=== PATIENT | male | born 1975 | race Two or more races ===

== ENCOUNTER 2023-12-16 13:23 | Outpatient (AMB) | payer OTHER, SELFPAY ==
[2023-12-16 13:26] VITALS: BP 110/82; PULSE 74; O2SAT 95; BMI 35.8
--- NOTE | 2023-12-16 13:26 | MHC.PC.OV ---
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: No Accompanied by: Self / Same As Patient Allergies cats Allergy (Intermediate, Uncoded 12/16/23 14:27) sneezing, wheezing Medication List - Last Reconciled 12/16/23 by Eben Hanks MD No Known Home Meds Tobacco use date assessed: 12/16/23 Dental Screening Dental Screen Date: 12/16/23 Did you have a dental visit in the last 12 months?: Yes Did you have a dental problem in the last 6 months where you did not have access to dental care?: No Was dental information given to patient?: Patient has dentist HPI est care/ HDL HPI Details Patient comes in today to establish care - is a new patient to the practice Previous PCPs were in [place] and then [place] but has not seen a doctor in years States that he currently feels okay Relates that he had asthma when he was a child but has not needed to use any inhalers for years until recently after shoveling some snow when he felt somewhat winded and SOB for a few minutes States that his symptoms were mostly mild and lasted for only a few minutes but remembers that he was thinking that his symptoms would have been addressed immediately if only he had an inhaler on hand He denies any headaches or dizziness Denies any chest pains, no SOB at present No nausea/vomiting, no abdominal pain No change in bowel habits noted Denies any acute urinary symptoms PFSH Medical History (Updated 12/16/23 @ 14:46 by Eben Hanks MD) Obesity (BMI 30-39.9) Asthma Surgical History (Updated 12/16/23 @ 14:28 by Eben Hanks MD) Hx of inguinal hernia surgery Hx of eye surgery Family History (Updated 12/16/23 @ 14:29 by Eben Hanks MD) Mother Diabetes Paternal Grandmother Hyperlipidemia Social History Housing: House Patient Tobacco Use Status: Former Tobacco user e-Cigarette/Vaping Use: Never Used service: No Current occupational status: employed Current occupational exposures/hazards: No Cognitive needs: No Hearing needs: No Vision needs: No Questionnaire PHQ-9 Over the last 2 weeks, how often have you been bothered by any of the following problems? 1. Little interest or pleasure in doing things: not at all 2. Feeling down, depressed, or hopeless: not at all 3. Trouble falling or staying asleep, or sleeping too much: not at all 4. Feeling tired or having little energy: not at all 5. Poor appetite or overeating: not at all 6. Feeling bad about yourself - or that you are a failure or have let yourself or your family down: not at all 7. Trouble concentrating on things, such as reading the newspaper or watching television: not at all 8. Moving or speaking so slowly that other people could have noticed. Or the opposite - being so fidgety or restless that you have been moving around a lot more than usual: not at all 9. Thoughts that you would be better off or of hurting yourself in some way: not at all Total score: 0 Depression Screening Interpretation: Negative Depression Screening Done: Yes 90421 - PHQ-9 Billing: Yes Source: Developed by Drs. Asael Calixto, Minnie Dewey, Brent Lawosn and colleagues, with an educational ema from [employer]). Thrive Questionnaire Date Thrive assessed: 12/16/23 I am a: Patient What is your living situation today?: I have a steady place to live Within the past 12 months, did the food you bought not last and you didn't have the money to get more?: Never true Within the past 12 months, did you worry whether your food would run out before you got money to buy more?: Never true Do you have trouble paying for medicines?: No Do you have trouble getting transportation to medical appointments?: No Do you have trouble paying your heating and electricity bill?: No Do you have trouble taking care of your child, family member or friend?: No Do you have trouble with day-to-day activities such as bathing, preparing meals, shopping, managing finances, etc.?: No Are you currently unemployed and looking for a job?: No Are you interested in more education?: No Please select the resources that you would like help with: None Currently or been in a relationship where the following occur: no concerns reported AUDIT C Alcohol Use Questionnaire (AUDIT-C) 1. How often do you have a drink containing alcohol?: Monthly or less 2. How many drinks containing alcohol do you have on a typical day when you are drinking?: 5 or 6 3. How often do you have six or more drinks on one occasion?: Less than monthly Total Score: 4 Score Reviewed/Action Taken: Yes MARINO-7 AMB Questionnaire MARINO-7 Date MARINO - 7 assessed: 12/16/23 Feeling nervous, anxious, or on edge: 0 = Not at all Not being able to stop or control worryin = Not at all Worrying too much about different things: 0 = Not at all Trouble relaxin = Not at all Being so restless that it is hard to sit still: 0 = Not at all Becoming easily annoyed or irritable: 0 = Not at all Feeling afraid as if something awful might happen: 0 = Not at all Total MARINO-7 score (0-4 normal; 5-9 mild; 10-14 moderate; 15-21 severe): 0 Source: Developed by Drs. Asael Calixto, Minnie Dewey, Brent Lawson and colleagues, with an educational ema from [employer] ([employer]). Review of Systems Const Denies chills, Denies difficulty sleeping, Denies fatigue, Denies fever(s), Denies headache(s), Denies malaise and Denies weakness Eyes Denies blurry vision, Denies change in vision, Denies irritation and Denies itchy eyes ENT Denies dysphagia, Denies dizziness, Denies otalgia, Denies headache(s), Denies nasal congestion, Denies neck pain, Denies odynophagia and Denies sore throat Card Denies chest pain, Denies rapid heart rate, Denies irregular heart rhythm, Denies palpitations and Denies dyspnea Resp Denies chest congestion, Denies cough, Denies dyspnea and Denies wheezing GI Denies abdominal pain, Denies bloating, Denies constipation, Denies dysphagia, Denies heartburn, Denies diarrhea, Denies nausea, Denies odynophagia and Denies vomiting Denies hematuria, Denies difficulty urinating, Denies dysuria, Denies urinary frequency and Denies urinary urgency Musc Denies back pain, Denies arthralgias, Denies joint swelling, Denies muscle weakness and Denies neck pain Skin/Breast Denies change in pigmentation, Denies lesions, Denies rash and Denies unusual bruising Neuro Denies dizziness, Denies headache(s), Denies paresthesias and Denies weakness Endo Denies fatigue and Denies palpitations Aller/Immun Denies itchy eyes and Denies wheezing Physical exam (Primary Care) Vital Signs: Last Vital Signs Pulse 74 12/16/23 13:26 BP 110/82 12/16/23 13:26 Pulse Ox 95 12/16/23 13:26 Oxygen Delivery Method Room Air 12/16/23 13:26 BMI result Body Mass Index 35.8 Tobacco/Smoking Status: Tobacco use Status Tobacco use date assessed 12/16/23 12/16/23 13:33 Patient Tobacco Use Status Former Tobacco user 12/16/23 13:33 e-Cigarette/Vaping Use Never Used 12/16/23 13:33 PHQ-9: PHQ-9 Score PHQ-9: Total score 0 12/16/23 13:33 Depression Screening Interpretation: Negative Thrive Assessment: Date of Thrive Assessment Date Thrive assessed 12/16/23 12/16/23 13:33 Currently or been in a relationship where the following occur: no concerns reported Const General: no acute distress, alert and awake Orientation/consciousness: patient oriented x3 HENMT Head: Yes normocephalic and Yes atraumatic Ears: external ears normal, TM's normal bilaterally and EAC's normal General nose exam: No nasal discharge present Face and sinus: Yes normal facial exam and Yes sinuses nontender Teeth and gingiva: dentition normal Throat: Yes posterior oropharynx normal and Yes tonsils normal (no TP congestion) Eyes Eyelids: Yes eyelids normal Conjunctivae: conjunctivae normal Pupils: Equal, round and reactive pupils present EOM: EOMs intact bilaterally Neck Neck: Yes no lymphadenopathy and Yes supple Thyroid: Thyroid normal Resp Auscultation: clear to auscultation bilaterally, no rales and no wheezes Cardio Rate: regular rate Rhythm: regular rhythm Heart sounds: no murmurs GI Palpation (GI): Soft to palpation, nontender and No hepatosplenomegaly present Auscultation: normal bowel sounds General: Yes no CVA tenderness Back/Spine/Pelvis Back: no CVA tenderness Thoracic/Lumbar Spine: thoracic and lumbar spine normal to inspection Skin Lesions: no lesions Rashes: no rashes Neuro General: patient oriented x3, moves all extremities, no focal motor deficits and CN's II-XI intact bilaterally Cranial nerves: Yes Equal, round and reactive pupils present Cognition (Neuro): normal cognition Gait exam (Neuro): Normal gait present Extrem General: Yes no clubbing, cyanosis or edema Assessment and Plan Assessment & Plan (1) Annual physical exam: Code(s): Z00.00 - Encounter for general adult medical examination without abnormal findings Plan: Check labs He has never had a screening colonoscopy done in the past (2) Asthma: Code(s): J45.909 - Unspecified asthma, uncomplicated Qualifiers: Asthma severity: mild Asthma persistence: intermittent Asthma complication type: uncomplicated Qualified Code(s): J45.20 - Mild intermittent asthma, uncomplicated Plan: Stable Will send in Rx for Albuterol HFA to use 1 to 2 inhalations Q 6 hours PRN - patient is advised that he only needs to use this WHEN needed (3) Obesity (BMI 30-39.9): Code(s): E66.9 - Obesity, unspecified Plan: Discussed diet/exercise as tolerated/lose weight (4) Colon cancer screening: Code(s): Z12.11 - Encounter for screening for malignant neoplasm of colon Plan: Will refer patient to GI for colon cancer screening Plan Follow up in 6 months Orders: Orders Complete Blood Count Auto Diff Today J45.909 - Unspecified asthma, uncomplicated, Z00.00 - Encounter for general adult medical examination without abnormal findings UA CC w/rflx Micro + Cult Today J45.909 - Unspecified asthma, uncomplicated, R30.0 - Dysuria, Z00.00 - Encounter for general adult medical examination without abnormal findings Vitamin D 25-OH Total Today E55.9 - Vitamin D deficiency, unspecified, J45.909 - Unspecified asthma, uncomplicated, Z00.00 - Encounter for general adult medical examination without abnormal findings Hemoglobin A1c Today R73.01 - Impaired fasting glucose, Z00.00 - Encounter for general adult medical examination without abnormal findings Comprehensive [place]. Panel Fast Today E78.00 - Pure hypercholesterolemia, unspecified, J45.909 - Unspecified asthma, uncomplicated, Z00.00 - Encounter for general adult medical examination without abnormal findings Lipid Panel Today E78.00 - Pure hypercholesterolemia, unspecified, J45.909 - Unspecified asthma, uncomplicated, Z00.00 - Encounter for general adult medical examination without abnormal findings TSH reflex Free T4 Today E78.00 - Pure hypercholesterolemia, unspecified, J45.909 - Unspecified asthma, uncomplicated, Z00.00 - Encounter for general adult medical examination without abnormal findings Prostate Specific Antigen Scr Today J45.909 - Unspecified asthma, uncomplicated, Z00.00 - Encounter for general adult medical examination without abnormal findings Referrals Gastroenterology Referral Z12.11 - Encounter for screening for malignant neoplasm of colon Medications: New albuterol sulfate 90 mcg/actuation (Ventolin HFA) 2 puffs inhalation Q6H 30 days PRN 8.5 grams 5RF shortness of breath or wheezing Coding Level of Care Code New Pt Prev Care 40-64y(44255) Diagnoses Annual physical exam Z00.00 Mild intermittent asthma without complication J45.20 Asthma severity: mild Asthma persistence: intermittent Asthma complication type: uncomplicated Obesity (BMI 30-39.9) E66.9 Colon cancer screening Z12.11
== END 2023-12-16 14:40 | disposition home or self-care (01) ==
PROVIDERS: PCP Internal Medicine; Visit Provider Internal Medicine
DX: Z00.00 Encounter for general adult medical examination without abnormal findings (principal); Z68.35 Body mass index [BMI] 35.0-35.9, adult; E66.9 Obesity, unspecified; J45.20 Mild intermittent asthma, uncomplicated; Z12.11 Encounter for screening for malignant neoplasm of colon
CPT/HCPCS: 99386

== ENCOUNTER 2023-12-16 14:55 | Outpatient (REF) | payer OTHER, SELFPAY ==
[2023-12-16 15:22] LABS: MANUAL DIFF FLAG NO
[2023-12-16 15:55] LABS: Basophils Absolute Auto 0.1 X10*3/uL (0.0-0.2); Basophils Percent Auto 1.9 % (0-2); Eosinophils Absolute Auto 0.4 X10*3/uL (0.0-0.4); Hemoglobin 15.3 g/dl (14.0-18.0); Imm Gran Abs Auto 0.01 X10*3/uL (0.00-0.03); Imm Gran Pct Auto 0.2 % (0.0-0.4); Lymphocytes Absolute Auto 2.4 X10*3/uL (1.2-4.9); Lymphocytes Percent Auto 49.7 % (20-40); Mean Corpuscular HGB Conc 34.8 g/dl (31.0-36.0); Mean Corpuscular Hemoglobin 28.7 pg (27.0-33.0); Mean Corpuscular Volume 82.6 fL (80.0-98.0); Mean Platelet Volume 10.3 fL (9.4-12.4); Monocytes Absolute Auto 0.5 X10*3/uL (0.1-1.2); Monocytes Percent Auto 10.4 % (2-11); Neutrophils Absolute Auto 1.4 x10*3/uL (2.0-8.3); Neutrophils Percent Auto 29.8 % (45-73); Platelet Count 241 X10*3/uL (160-400); Red Blood Count 5.33 X10*6/uL (4.60-5.80); Red Cell Distribution Width 12.8 % (11.0-16.0); White Blood Count 4.7 X10*3/uL (4.8-10.8)
[2023-12-16 16:02] LABS: Appearance Urine Clear; Color Urine Yellow; Glucose Urine UA Negative (Negative); Leukocyte Esterase Urine Negative (Negative); Nitrite Urine Negative (Negative); PH 6.5 (5.0-9.0); Specific Gravity - Urine >= 1.030 (1.005-1.025); Urine Blood Negative (Negative); Urine Ketones Negative (Negative); Urine Protein Negative (Neg-Trace)
[2023-12-16 16:37] LABS: Estimated Average Glucose 103 mg/dL; Hemoglobin A1c % 5.2 % (<6.0)
[2023-12-16 17:36] LABS: Alanine Aminotransferase 32 U/L (0-40); Albumin Level 4.7 g/dL (3.5-5.0); Alkaline Phosphatase 61 U/L (39-117); Anion Gap 11 (12-20); Aspartate Amino Transferase 18 U/L (5-37); Bilirubin Total 0.4 mg/dL (0.0-1.0); Blood Urea Nitrogen 20 mg/dL (9-16); Calcium 10.1 mg/dL (8.4-10.2); Carbon Dioxide 30 mmol/L (22-29); Chloride 103 mmol/L (96-108); Cholesterol 167 mg/dL (<200); Estimated Glomerular Filt Rate > 60; Glucose Fasting 79 mg/dL (60-99); HDL Cholesterol 31 mg/dL (>40); LDL Cholesterol Calculated 93 mg/dL (<100); Potassium 4.2 mmol/L (3.3-5.1); Sodium 140 mmol/L (135-145); Total Protein 8.2 g/dL (6.5-8.0); Triglycerides 216 mg/dL (<150)
[2023-12-16 17:52] LABS: Prostate Specific Antigen Scr 0.27 ng/mL (<0.05-4.0); TSH reflex Free T4 2.29 uIU/mL (0.32-4.0)
== END 2023-12-16 14:56 | disposition home or self-care (01) ==
LOC: HO.LAB 14:55
PROVIDERS: PCP Internal Medicine; Visit Provider Internal Medicine
DX: Z00.00 Encounter for general adult medical examination without abnormal findings (principal); Z12.5 Encounter for screening for malignant neoplasm of prostate; J45.909 Unspecified asthma, uncomplicated; E55.9 Vitamin D deficiency, unspecified; R73.01 Impaired fasting glucose; R30.0 Dysuria; E78.00 Pure hypercholesterolemia, unspecified
CPT/HCPCS: 36415; 80053; 80061; 81003; 82306; 83036; 84153; 84443; 85025

== ENCOUNTER 2024-02-26 09:33 | Outpatient (AMB) | payer OTHER, SELFPAY ==
--- NOTE | 2024-02-26 09:35 | MHC.OFFVIS ---
Intake Vital Signs 02/26/24 09:36 Height 5 ft 6 in Weight 220 lb 7.396 oz BMI 35.6 BP 127/83 Blood Pressure Location Lt brachial Position Sitting Pulse 68 Intake Visit Reasons: Colonoscopy Screening Intake Note: Percy presents today as a new patient for colonoscopy screening. CC: Patient denies having any GI symptoms or concerns today.. Patient Services Coordinator Required: No Accompanied by: Self / Same As Patient Allergies No Known Drug Allergies Allergy (Unknown, Verified 02/26/24 09:42) none cats Allergy (Intermediate, Uncoded 12/16/23 14:27) sneezing, wheezing HPI Colonoscopy Screening HPI Details 48-year-old male here for preprocedural meeting to discuss a screening colonoscopy. He is referred by Eben Hanks of [facility] primary care. PMX Asthma Obesity * SURGICAL HISTORY Left inguinal hernia repair Right eye correction surgery in childhood * ALLERGIES: NKDA * [employer] LABS: Laboratory Tests 12/16/23 15:19 WBC 4.7 L Hgb 15.3 Hct 44.0 Plt Count 241 Estimated GFR > 60 Hemoglobin A1c % 5.2 Total Bilirubin 0.4 AST 18 ALT 32 Alkaline Phosphata se 61 TSH 2.29 TODAY'S VISIT This is his first colonoscopy Only rare RB on TT with wiping, no upper GI problems. His asthma is well controlled and he denies any cardiac problems. There are no prior problems with anesthesia or sedation.. No ID problems No FHX of CRC or polyps known. [facility] Medical History (Updated 02/26/24 @ 09:45 by MARILUZ Butler) Obesity (BMI 30-39.9) Asthma Surgical History (Updated 12/16/23 @ 14:28 by Eben Hanks MD) Hx of inguinal hernia surgery Hx of eye surgery Family History (Updated 02/26/24 @ 09:43 by Garrett Braden [facility]) Mother Diabetes Paternal Grandmother Hyperlipidemia Maternal Aunt Stomach cancer Family/Other Stomach cancer Social History Housing: House Patient Tobacco Use Status: Former Tobacco user e-Cigarette/Vaping Use: Never Used service: No Current occupational status: employed Current occupational exposures/hazards: No Cognitive needs: No Hearing needs: No Vision needs: No Review of Systems Const Denies fatigue, Denies fever(s), Denies night sweats, Denies poor appetite and Denies weight loss ENT Reports Normal hearing present, Denies dental pain, Denies dysphagia, Denies hearing loss, Denies mouth pain, Denies odynophagia, Denies throat swelling, Denies tongue swelling and Reports other (Dentition adequate) Card Reports no additional complaints Resp Reports no additional complaints GI Details: Denies abdominal pain, Denies melena, Denies bloating, Reports hematochezia, Denies constipation, Denies GI cramping, Denies dysphagia, Denies excessive flatus, Denies early satiety, Denies heartburn, Denies diarrhea, Denies nausea, Denies odynophagia, Denies vomiting and Denies hematemesis Skin/Breast Denies pruritus, Denies lesions, Denies rash and Denies jaundice Neuro Reports Normal hearing present and Denies Abnormal speech present Endo Denies fatigue Aller/Immun Denies throat swelling and Denies tongue swelling Physical Exam Vital Signs: Last Vital Signs Pulse 68 02/26/24 09:36 BP 127/83 02/26/24 09:36 BMI result Body Mass Index 35.6 Const General: cooperative, no acute distress, well developed and well groomed Nutritional Appearance: well nourished and obese centrally obese Orientation/consciousness: oriented to person, oriented to place and oriented to time Limitations: No language barrier HEENT Head: Yes normocephalic and Yes atraumatic Eyes General: appearance normal, both eyes and all related structures Pupils: Equal, round and reactive pupils present Neck Neck: Yes normal visual inspection and Yes no lymphadenopathy Thyroid: Thyroid normal Resp Effort & Inspection: normal respiratory effort and able to speak in complete sentences Auscultation: clear to auscultation bilaterally Cardio Rate: regular rate Rhythm: regular rhythm Heart sounds: Normal, physiologic split S2 sound present Peripheral pulses: radial pulses present and posterior tibial pulses present GI Inspection: No distended, No Abdominal panniculus present and Yes obesity Palpation (GI): Soft to palpation, nontender, no guarding, not rigid and No hepatosplenomegaly present Percussion: Yes normal to percussion Auscultation: normal bowel sounds Rectal Exam - Male: Yes deferred Skin General skin exam: no rashes or lesions noted, turgor normal, skin not dry, no jaundice, No spider nevi and no striae Rashes: no rashes Nails: normal Neuro General: oriented to person, oriented to place and oriented to time Cranial nerves: Yes Equal, round and reactive pupils present and Yes Normal hearing present Speech: No Abnormal speech present Extrem General: Yes normal to inspection, No clubbing, No cyanosis and No edema Psych Appearance: grossly normal and well kempt Mental Status: mental status grossly normal Speech and movement: Normal speech and movement present Affect: normal affect Attitude: cooperative Thought process: Normal thought process present and not confabulating Thought content: Normal thought content present Insight: Fair insight present (Psych) Judgement: Fair judgement present (Psych) Assessment & Plan Assessment & Plan (1) Pre-op examination: Code(s): Z01.818 - Encounter for other preprocedural examination Plan This is his first colonoscopy Only rare RB on TT with wiping, no upper GI problems. His asthma is well controlled and he denies any cardiac problems. There are no prior problems with anesthesia or sedation.. No ID problems No FHX of CRC or polyps known. Orders: Orders Colonoscopy - GI Use Only Today Z01.818 - Encounter for other preprocedural examination Medications: New sodium,potassium,mag sulfates 17.5-3.13-1.6 gram (Suprep Bowel Prep Kit) 480 mL orally; 354 mL 0RF Z01.818 - Encounter for other preprocedural examination Coding Level of Care Code New Pt Level 3 (82272) Diagnoses Pre-op examination Z01.818
[2024-02-26 09:36] VITALS: BP 127/83; PULSE 68; BMI 35.6
== END 2024-02-26 11:03 | disposition home or self-care (01) ==
PROVIDERS: PCP Internal Medicine; Visit Provider Nurse Practitioner
DX: Z01.818 Encounter for other preprocedural examination (principal); Z12.11 Encounter for screening for malignant neoplasm of colon
CPT/HCPCS: S0285

== ENCOUNTER → 2024-02-26 09:33 | Outpatient (BNVA) | payer OTHER, SELFPAY | PROVIDERS: PCP Internal Medicine; Visit Provider Nurse Practitioner ==

== ENCOUNTER 2024-06-15 09:34 | Outpatient (AMB) | payer OTHER, SELFPAY ==
--- NOTE | 2024-06-15 09:37 | A.OFFPC_ITS ---
Vital Signs 06/15/24 09:38 Height 5 ft 6 in Weight 223 lb 2 oz BMI 36.0 BP 120/70 Blood Pressure Location Lt brachial Position Sitting Pulse 63 Pulse Source Pulse Oximeter Pulse Oximetry (%) 97 Oxygen Delivery Method Room Air Intake Visit Reasons: 6mth f/u Intake Note: Patient is here to follow up on Asthma, Obesity. Information Systems Audit Manager Required: No Auto Striper: Not Required per policy Accompanied by: Self / Same As Patient Allergies No Known Drug Allergies Allergy (Unknown, Verified 06/15/24 11:35) none cats Allergy (Intermediate, Uncoded 06/15/24 11:35) sneezing, wheezing Medication List - Last Reconciled 06/15/24 by Eben Hanks MD cholecalciferol (vitamin D3) 50 mcg PO DAILY 90 days hydrocortisone 1% 1 appl topical .QD-BID PRN sodium,potassium,mag sulfates 17.5-3.13-1.6 gram (Suprep Bowel Prep Kit) 480 mL orally; Tobacco use date assessed: 06/15/24 Dental Screening Dental Screen Date: 12/16/23 HPI 6mth f/u HPI Details Patient comes in today for his follow up visit States that he feels okay He denies any headaches or dizziness Denies any chest pains, no SOB No nausea/vomiting, no abdominal pain No change in bowel habits noted Would like to go over the results of his labs done back in December 2023 Adds that he has a couple of areas of dry, irritated skin that have been present for a while now and he would like to know what he can do to get these cleared up for good He is also scheduled for his screening [place] [facility] [place] [facility] Medical History (Updated 06/15/24 @ 11:32 by Eben Hanks MD) Vitamin D deficiency Mixed hyperlipidemia Obesity (BMI 30-39.9) Asthma Surgical History History of surgery on arm Hx of inguinal hernia surgery Hx of eye surgery Family History Mother Diabetes Paternal Grandmother Hyperlipidemia Maternal Aunt Stomach cancer Family/Other Stomach cancer Social History Housing: House Alcohol intake: current Alcohol intake frequency: a few times a month Patient Tobacco Use Status: Former Tobacco user e-Cigarette/Vaping Use: Never Used Second Hand Smoke Exposure: Yes service: No Current occupational status: employed Current occupational exposures/hazards: No Cognitive needs: No Hearing needs: No Vision needs: No Questionnaire Thrive Questionnaire Date Thrive assessed: 12/16/23 MARINO-7 AMB Questionnaire MARINO-7 Date MARINO - 7 assessed: 12/16/23 Source: Developed by Drs. Asael Calixto, Minnie Dewey, Brent Lawson and colleagues, with an educational ema from [employer]. Review of Systems Const Denies chills, Denies fatigue, Denies fever(s) and Denies headache(s) ENT Denies dysphagia, Denies dizziness, Denies otalgia, Denies headache(s), Denies neck pain, Denies odynophagia and Denies sore throat Card Denies chest pain, Denies palpitations and Denies dyspnea Resp Denies cough and Denies dyspnea GI Denies abdominal pain, Denies constipation, Denies dysphagia, Denies heartburn, Denies diarrhea, Denies nausea, Denies odynophagia and Denies vomiting Denies dysuria, Denies nocturia and Denies urinary frequency Musc Denies back pain and Denies neck pain Skin/Breast Details: (+) patch of dry, irritated skin on the dorsum of his right ring finger and also over the dorsum of the penile shaft Neuro Denies dizziness and Denies headache(s) Endo Denies fatigue and Denies palpitations Physical exam (Primary Care) Vital Signs: Last Vital Signs Pulse 63 06/15/24 09:38 BP 120/70 06/15/24 09:38 Pulse Ox 97 06/15/24 09:38 Oxygen Delivery Method Room Air 06/15/24 09:38 BMI result Body Mass Index 36.0 Tobacco/Smoking Status: Tobacco use Status Tobacco use date assessed 06/15/24 06/15/24 09:42 Patient Tobacco Use Status Former Tobacco user 06/15/24 09:42 e-Cigarette/Vaping Use Never Used 06/15/24 09:42 Thrive Assessment: Date of Thrive Assessment Date Thrive assessed 12/16/23 06/15/24 09:42 Const General: no acute distress and alert HENMT Ears: TM's normal bilaterally and EAC's normal Throat: Yes posterior oropharynx normal and Yes tonsils normal (no TP congestion) Neck Neck: Yes no lymphadenopathy and Yes supple Thyroid: Thyroid normal Resp Auscultation: clear to auscultation bilaterally, no rales and no wheezes Cardio Rate: regular rate Rhythm: regular rhythm Heart sounds: no murmurs GI Palpation (GI): Soft to palpation and nontender Auscultation: normal bowel sounds General: Yes no CVA tenderness Back/Spine/Pelvis Back: no CVA tenderness Skin Other: (+) patch of dry skin over the dorsum of the right ring (4th) finger and also over the dorsum of his penile shaft Extrem General: Yes no clubbing, cyanosis or edema Results Reviewed Results Reviewed: Laboratory Tests 12/16/23 12/16/23 15:19 15:56 WBC 4.7 L Hgb 15.3 Hct 44.0 Plt Count 241 Sodium 140 Potassium 4.2 Creatinine 0.96 Estimated GFR > 60 Fasting Glucose 79 Hemoglobin A1c % 5.2 Calcium 10.1 AST 18 ALT 32 Triglycerides 216 H Cholesterol 167 LDL Cholesterol, Calc 93 HDL Cholesterol 31 L PSA Screen 0.27 25-OH Vitamin D Total 16.0 L TSH 2.29 Ur Specific [place] >= 1.030 H Urine Protein Negative Urine Glucose (UA) Negative Urine Blood Negative Urine Nitrite Negative Ur Leukocyte Esterase Negative Assessment and Plan Assessment & Plan (1) Asthma: Code(s): J45.909 - Unspecified asthma, uncomplicated Qualifiers: Asthma severity: mild Asthma persistence: intermittent Asthma complication type: uncomplicated Qualified Code(s): J45.20 - Mild intermittent asthma, uncomplicated Plan: Stable Continue Albuterol HFA 1 to 2 inhalations Q 6 hours PRN (2) Mixed hyperlipidemia: Code(s): E78.2 - Mixed hyperlipidemia Plan: Results of his labs done back in December 2023 reviewed and discussed with patient Have advised him that his serum triglyceride level is elevated at 216 mg/dl; HDL cholesterol is low at 31 mg/dl - discussed that this usually goes in the opposite direction of his triglyceride level Discussed low cholesterol diet; advised also that exercising and losing weight can help address his cholesterol levels Will have him recheck his labs and fasting lipids in 6 months for follow up - is advised to try getting these done BEFORE he comes in for his next appointment (3) Vitamin D deficiency: Code(s): E55.9 - Vitamin D deficiency, unspecified Plan: Have advised him as well that his Vitamin D level was low on his labs Will start him on Vitamin D3 2000 units QD - advised that he can get this OTC if it is not covered by his insurance company (4) Dermatitis: Code(s): L30.9 - Dermatitis, unspecified Plan: Have advised him that the patch of dry, irritated skin on his finger and also on his penile shaft are both likely dermatitis/eczema brought about by skin irritation due to dry skin Will start him on Hydrocortisone 1% topical cream - is instructed to apply this BID-TID to his affected finger but on his penile shaft, he should apply this no more than once a day at night in conjunction with the liberal use of Cetaphil lotion (that he can get OTC) about 2 to 3 times a day (5) Obesity (BMI 30-39.9): Code(s): E66.9 - Obesity, unspecified Plan: Reinforced diet/exercise as tolerated/lose weight Plan To return in 6 months for his next annual physical examination Orders: Orders Complete Blood Count Auto Diff 6 Months D64.9 - Anemia, unspecified, Z00.00 - Encounter for general adult medical examination without abnormal findings Lipid Panel 6 Months E78.00 - Pure hypercholesterolemia, unspecified, Z00.00 - Encounter for general adult medical examination without abnormal findings UA CC w/rflx Micro + Cult 6 Months R30.0 - Dysuria, Z00.00 - Encounter for general adult medical examination without abnormal findings Vitamin D 25-OH Total 6 Months E55.9 - Vitamin D deficiency, unspecified, Z00.00 - Encounter for general adult medical examination without abnormal findings Comprehensive [place]. Panel Fast 6 Months E78.00 - Pure hypercholesterolemia, unspecified, Z00.00 - Encounter for general adult medical examination without abnormal findings TSH reflex Free T4 6 Months E78.00 - Pure hypercholesterolemia, unspecified, Z00.00 - Encounter for general adult medical examination without abnormal findings Medications: New cholecalciferol (vitamin D3) 50 mcg PO DAILY 90 days 90 caps 3RF E55.9 - Vitamin D deficiency, unspecified hydrocortisone 1% 1 appl topical .QD-BID PRN 28.4 grams 1RF rash Coding Level of Care Code Est Pt Level 4 (38943) Diagnoses Mild intermittent asthma without complication J45.20 Asthma severity: mild Asthma persistence: intermittent Asthma complication type: uncomplicated Mixed hyperlipidemia E78.2 Vitamin D deficiency E55.9 Dermatitis L30.9 Obesity (BMI 30-39.9) E66.9
[2024-06-15 09:38] VITALS: BP 120/70; PULSE 63; O2SAT 97; BMI 36.0
== END 2024-06-15 10:54 | disposition home or self-care (01) ==
PROVIDERS: PCP Internal Medicine; Visit Provider Internal Medicine
DX: J45.20 Mild intermittent asthma, uncomplicated (principal); E78.2 Mixed hyperlipidemia; E55.9 Vitamin D deficiency, unspecified; L30.9 Dermatitis, unspecified
CPT/HCPCS: 99214

== ENCOUNTER 2024-07-08 06:39 | Day surgery (SDC) | payer OTHER, SELFPAY ==
[2024-07-06 14:13] VITALS: BMI 36.0
--- NOTE | 2024-07-07 11:51 | P.CONAN_ITS ---
Documented by User: Cristiana Contreras NP 07/07/24 11:52 HPI - Anesthesia Eval Consult details Narrative: 48yo M for Colonoscopy PMFSH Active Problems Active Problems: All Active Problems Dermatitis (Acute) Vitamin D deficiency (Acute) Mixed hyperlipidemia (Acute) Pre-op examination (Acute) Obesity (BMI 30-39.9) (Acute) Colon cancer screening (Acute) Annual physical exam (Acute) Asthma (Acute) Past Medical History Medical History (Updated 06/15/24 @ 11:32 by Eben Hanks MD) Vitamin D deficiency Mixed hyperlipidemia Obesity (BMI 30-39.9) Asthma Family History Family History Mother Diabetes Paternal Grandmother Hyperlipidemia Maternal Aunt Stomach cancer Family/Other Stomach cancer Surgical History Surgical History History of surgery on arm Hx of inguinal hernia surgery Hx of eye surgery Social History Social History Housing: House Alcohol intake: current Alcohol intake frequency: holidays/special occasions only Patient Tobacco Use Status: Former Tobacco user e-Cigarette/Vaping Use: Never Used Second Hand Smoke Exposure: Yes Are you DNR?: No Advance Directives: No Advance Directives Information Provided: Yes Nutrition Risks: No Nutritional Risk service: No Current occupational status: employed Current occupational exposures/hazards: No Cognitive needs: No Hearing needs: No Vision needs: No Meds Allergies Allergy/AdvReac Type Severity Reaction Status Date / Time cat dander [cats] Allergy Intermediate sneezing/wh Verified 07/06/24 14:12 eezing Latex, Natural Rubber Allergy Rash Verified 07/08/24 07:13 Exam Height,Weight and Vital Signs: Height 5 ft 6 in Weight 101.151 kg Assessment and Plan Assessment Anesthesia Assessment: Chart Reviewed Documented by User: Martin Conner MD 07/08/24 07:38 [facility] Past Medical History Medical History (Updated 06/15/24 @ 11:32 by Eben Hanks MD) Vitamin D deficiency Mixed hyperlipidemia Obesity (BMI 30-39.9) Asthma Family History Family History Mother Diabetes Paternal Grandmother Hyperlipidemia Maternal Aunt Stomach cancer Family/Other Stomach cancer Family history of problems with anesthesia: No Surgical History Surgical History History of surgery on arm Hx of inguinal hernia surgery Hx of eye surgery History of Problems with Anesthesia: No Social History Social History Housing: House Alcohol intake: current Alcohol intake frequency: holidays/special occasions only Patient Tobacco Use Status: Former Tobacco user e-Cigarette/Vaping Use: Never Used Second Hand Smoke Exposure: Yes Are you DNR?: No Advance Directives: No Advance Directives Information Provided: Yes Nutrition Risks: No Nutritional Risk service: No Current occupational status: employed Current occupational exposures/hazards: No Cognitive needs: No Hearing needs: No Vision needs: No Meds Allergies Allergy/AdvReac Type Severity Reaction Status Date / Time cat dander [cats] Allergy Intermediate sneezing/wh Verified 07/06/24 14:12 eezing Latex, Natural Rubber Allergy Rash Verified 07/08/24 07:13 Exam Airway Mallampati Class: II TM Dist: >3cm Neck ROM: Full Assessment and Plan Assessment Anesthesia Assessment: Anesthesia Plan Discussed Final Anesthetic Review Family History of Problems with Anesthesia: No History of Problems with Anesthesia: No NPO: Yes ASA Class: II Final Preanesthetic Review: No Changes in Pt Med Stat, Meds/Allgs Chart Reviewed, Consent Obtained/Reviewed and Anes Risks/Benef Reviewed Patient Risk: Low Procedure Risk: Low Anesthetic Plan Anesthetic Plan: TIVA Disposition: Standard PACU
[2024-07-08 06:58] VITALS: BP 127/88; PULSE 70; RESP 18; TEMP 36.1; O2SAT 97; BMI 36.0
[2024-07-08] MEDS: Lactated Ringers 1,000 ML 100 ML IVCONT (07:24)
--- NOTE | 2024-07-08 07:38 | P.CONAN_ITS ---
[facility] Active Problems Active Problems: All Active Problems Dermatitis (Acute) Vitamin D deficiency (Acute) Mixed hyperlipidemia (Acute) Pre-op examination (Acute) Obesity (BMI 30-39.9) (Acute) Colon cancer screening (Acute) Annual physical exam (Acute) Asthma (Acute) Past Medical History Medical History (Updated 06/15/24 @ 11:32 by Eben Hanks MD) Vitamin D deficiency Mixed hyperlipidemia Obesity (BMI 30-39.9) Asthma Family History Family History Mother Diabetes Paternal Grandmother Hyperlipidemia Maternal Aunt Stomach cancer Family/Other Stomach cancer Family history of problems with anesthesia: No Surgical History Surgical History History of surgery on arm Hx of inguinal hernia surgery Hx of eye surgery History of Problems with Anesthesia: No Social History Social History Housing: House Alcohol intake: current Alcohol intake frequency: holidays/special occasions only Patient Tobacco Use Status: Former Tobacco user e-Cigarette/Vaping Use: Never Used Second Hand Smoke Exposure: Yes Are you DNR?: No Advance Directives: No Advance Directives Information Provided: Yes Nutrition Risks: No Nutritional Risk service: No Current occupational status: employed Current occupational exposures/hazards: No Cognitive needs: No Hearing needs: No Vision needs: No Meds Allergies Allergy/AdvReac Type Severity Reaction Status Date / Time cat dander [cats] Allergy Intermediate sneezing/wh Verified 07/06/24 14:12 eezing Latex, Natural Rubber Allergy Rash Verified 07/08/24 07:13 Active Medications: Current Medications Albuterol Sulfate (Albuterol Sulfate (0.083%) 2.5 Mg/3 Ml Vial.Neb) 2.5 mg INHALE ONCE PRN PRN Reason: Shortness of Breath/Wheezing Lactated Ringer's (Lr) 1,000 mls @ 100 mls/hr IVCONT .Q10H DENISE Last Admin: 07/08/24 07:24 Dose: 100 mls/hr Exam Height,Weight and Vital Signs: Height 5 ft 6 in Weight 101.3 kg Last Vital Signs Temp 97.0 F 07/08/24 06:58 Pulse 70 07/08/24 06:58 Resp 18 07/08/24 06:58 BP 127/88 07/08/24 06:58 Pulse Ox 97 07/08/24 06:58 O2 Del Method Room Air 07/08/24 06:58 Airway Mallampati Class: II TM Dist: >3cm Neck ROM: Full Assessment and Plan Assessment Anesthesia Assessment: Anesthesia Plan Discussed and Chart Reviewed Final Anesthetic Review Family History of Problems with Anesthesia: No History of Problems with Anesthesia: No NPO: Yes ASA Class: II Final Preanesthetic Review: No Changes in Pt Med Stat, Meds/Allgs Chart Reviewed, Consent Obtained/Reviewed and Anes Risks/Benef Reviewed Patient Risk: Intermediate Procedure Risk: Low Anesthetic Plan Anesthetic Plan: TIVA Disposition: Standard PACU
--- NOTE | 2024-07-08 08:04 | P.HPSUR_ITS ---
Pre-Procedural Eval Section A - 24 Hr Update-Section A only Date of Service: 07/08/24 Section B - Complete if H&P > 30 days Chief Complaint: Encounter for screening for malignant neoplasm of Relevant Family History (Specify if Yes): No Relevant Social History: None Present Medications: see Short Stay Collaborative assessment Medical History: Significant History ( Vitamin D deficiency Mixed hyperlipidemia Obesity (BMI 30-39.9) Asthma) History of Previous Operations: Relevant previous surgery/procedure and date(s) (History of surgery on arm Hx of inguinal hernia surgery Hx of eye surgery) Allergies: Allergies Allergy/AdvReac Type Severity Reaction Status Date / Time cat dander [cats] Allergy Intermediate sneezing/wh Verified 07/06/24 14:12 eezing Latex, Natural Rubber Allergy Rash Verified 07/08/24 07:13 Review of Systems Sugical H&P ROS: Negative: Constitution, Cardiovascular, Respiratory, Neurological, Psychiatric, Hem-Onc, Allergic/Immunologic, Gastrointestinal, Genitourinary, Musculoskeletal, Integumentary, Endocrine and Eyes/Ears/N ose/Throat Exam Surgical H&P Exam: Normal: HEENT, Normal: Heart, Normal: Lungs, Normal: Extremities, Normal: Abdomen, Normal: Skin and Normal: Neurological Plan Diagnosis/Plan: Unchanged I have reviewed the history and physical and performed a pertinent physical examination on my patient. No changes have occurred unless specified. Time Spent With Patient Time: Total time managing care of this patient today ____ minutes.
--- NOTE | 2024-07-08 08:05 | P.OPN-COLO_ITS ---
Colonoscopy Operative Note Operative Note Date of Service: 07/08/24 Narrative: Operative Information Procedure Description: Colonoscopy Indication: screening Anesthesia: MAC COLONOSCOPY Instrument: Olympus variable stiffness pediatric scope 190L Colonoscopy Monitoring: Vital signs and clinical assessment, continuous EKG monitoring, Pulse oximetry, Carbon Dioxide monitoring and blood pressure monitoring were done throughout the procedure. Colon withdrawal time was 12 minutes. Procedure: The patient was placed in the left lateral decubitis position and pre-procedure medications were administered. After a digital rectal examination of the ano-rectum, the video colonoscope was inserted into the rectum and advanced through the colon to the cecum/TI. The colonoscope was slowly withdrawn in a retrograde panoramic fashion and the colon mucosa was carefully examined including a retroflexed view of the rectum. Findings and interventions are described below. Procedure Difficulty: easy Findings: Terminal Ileum- mild ileitis and few erosions seen, bx taken Cecum:normal Ascending Colon: normal, random bx taken Transverse Colon -normal Descending Colon:normal Sigmoid Colon: normal Rectum: Retroflexion with small internal hemorrhoids seen, grade I, 4-5 mm sess ile polyp removed with cold forceps Anorectum - normal Intervention: cold forceps Colon preparation: [place] Bowel Preparation Scale Right colon; 2 Transverse colon: 2 Left colon; 2 (0 = Unprepared colon segment with mucosa not seen due to solid stool that cannot be cleared. 1 = Portion of mucosa of the colon segment seen, but other areas of the colon segment not well seen due to staining, residual stool and/or opaque liquid. 2 = Minor amount of residual staining, small fragments of stool and/or opaque liquid, but mucosa of colon segment seen well. 3 = Entire mucosa of colon segment seen well with no residual staining, small fragments of stool or opaque liquid) Impression and Post Procedure Diagnosis: ileitis colon polyp internal hemorrhoids Plan: High fiber diet leaflet Avoid straining at stool, epsom salts and sitz bath, anusol supps or cream Repeat Colonoscopy in 5-7 years if adenomatous polyp, 10 yrs if hyperplastic or earlier if clinically indicated check nsaid history, if any sx then maybe Cte to r/o crohns or other enterography Above findings were reviewed with the patient and relevant handouts were provided if indicated.
[2024-07-08 08:47] VITALS: BP 109/72; PULSE 75; RESP 16; TEMP 36.3; O2SAT 98
[2024-07-08 09:02] VITALS: BP 130/93; PULSE 67; RESP 16; TEMP 36.3; O2SAT 98
== END 2024-07-08 09:32 | disposition home or self-care (01) ==
PROVIDERS: PCP Internal Medicine; Visit Provider Internal Medicine Gastroenterology
PROC: 0DJD8ZZ Inspection of Lower Intestinal Tract, Via Natural or Artificial Opening Endoscopic (ICD-10-PCS; CPT 45378; principal; 2024-07-08 08:10)
DX: Z12.11 Encounter for screening for malignant neoplasm of colon (principal); K62.1 Rectal polyp; K52.9 Noninfective gastroenteritis and colitis, unspecified; K64.0 First degree hemorrhoids; J45.909 Unspecified asthma, uncomplicated; E78.2 Mixed hyperlipidemia; E55.9 Vitamin D deficiency, unspecified; E66.9 Obesity, unspecified; Z68.35 Body mass index [BMI] 35.0-35.9, adult; Z98.890 Other specified postprocedural states; Z87.891 Personal history of nicotine dependence; Z91.040 Latex allergy status
CPT/HCPCS: 45380; 88305; J1596; J2704

== ENCOUNTER → 2024-07-08 06:39 | Outpatient (BNV) | payer OTHER, SELFPAY | PROVIDERS: PCP Internal Medicine; Visit Provider Internal Medicine Gastroenterology | DX: Z12.11 Encounter for screening for malignant neoplasm of colon (principal); K62.1 Rectal polyp; K64.0 First degree hemorrhoids; K52.9 Noninfective gastroenteritis and colitis, unspecified | CPT/HCPCS: 45380 ==

== ENCOUNTER 2024-07-22 09:17 | Outpatient (AMB) | payer OTHER, SELFPAY ==
[2024-07-22 09:26] VITALS: BP 141/83; PULSE 71; BMI 35.8
--- NOTE | 2024-07-22 09:26 | MHC.OFFVIS ---
Vital Signs 07/22/24 09:26 Height 5 ft 6 in Weight 221 lb 12.56 oz BMI 35.8 BP 141/83 H Blood Pressure Location Rt brachial Position Sitting Pulse 71 Intake Visit Reasons: s/p colonoscopy Intake Note: Mynor presents to in office follow up s/p colonoscopy. CC: Patient reports doing well and denies having any GI symptoms or concerns today. Production Support Supervisor Required: No Accompanied by: Self / Same As Patient Allergies cat dander [cats] Allergy (Intermediate, Verified 07/22/24 09:34) sneezing/wheezing No Known Drug Allergies Allergy (Unknown, Verified 07/22/24 09:34) none Latex, Natural Rubber Allergy (Verified 07/22/24 09:34) Rash HPI HPI s/p colonoscopy: Details: Assessment & Plan (1) Pre-op examination: Code(s): Z01.818 - Encounter for other preprocedural examination Plan This is his first colonoscopy Only rare RB on TT with wiping, no upper GI problems. His asthma is well controlled and he denies any cardiac problems. There are no prior problems with anesthesia or sedation.. No ID problems No FHX of CRC or polyps known. Orders: Orders Colonoscopy - GI Use Only Today Z01.818 - Encounter for other preprocedural examination Medications: New sodium,potassium,mag sulfates 17.5-3.13-1.6 gram (Suprep Bowel Prep Kit) 480 mL orally; 354 mL 0RF Z01.818 - Encounter for other preprocedural examination COLONOSCOPY 07/08/24 Findings: Terminal Ileum- mild ileitis and few erosions seen, bx taken Cecum:normal Ascending Colon: normal, random bx taken Transverse Colon -normal Descending Colon:normal Sigmoid Colon: normal Rectum: Retroflexion with small internal hemorrhoids seen, grade I, 4-5 mm sessile polyp removed with cold forceps Anorectum - normal Intervention: cold forceps Impression and Post Procedure Diagnosis: ileitis colon polyp internal hemorrhoids Plan: High fiber diet leaflet Avoid straining at stool, epsom salts and sitz bath, anusol supps or cream Repeat Colonoscopy in 5-7 years if adenomatous polyp, 10 yrs if hyperplastic or earlier if clinically indicated check nsaid history, if any sx then maybe Cte to r/o crohns or other enterography BIOPSY Received: 07/08/24 Diagnosis A. Terminal ileum, biopsy: Terminal ileal mucosa within normal limits. B. Colon, right, biopsy: Colonic mucosa within normal limits. C. Rectum, polypectomy: Hyperplastic mucosal polyp. TODAY'S VISIT We should repeat the procedure in 7 years. He likes spicy foods and does not have any diarrhea, except a severe response to the prep! The procedure was well tolerated. The results were explained and the patient is agreeable to the follow-up interval as stated. The bowel pattern has returned to normal. Education was provided to tell any 1st degree relatives about their findings to be sure that they are screened by age 45. Educated that they will be put on a recall list when it is time for their repeat scope but should they move out of state or away from the hospital they will need to remember along with their primary to repeat the procedure in a timely fashion to avoid any adverse complications. [facility] Medical History Vitamin D deficiency Mixed hyperlipidemia Obesity (BMI 30-39.9) Asthma Surgical History H/O colonoscopy History of surgery on arm Hx of inguinal hernia surgery Hx of eye surgery Family History Mother Diabetes Paternal Grandmother Hyperlipidemia Maternal Aunt Stomach cancer Family/Other Stomach cancer Social History Housing: House Alcohol intake: current Alcohol intake frequency: holidays/special occasions only Patient Tobacco Use Status: Former Tobacco user e-Cigarette/Vaping Use: Never Used Second Hand Smoke Exposure: Yes service: No Current occupational status: employed Current occupational exposures/hazards: No Cognitive needs: No Hearing needs: No Vision needs: No Review of Systems Const Denies fatigue, Denies fever(s), Denies night sweats, Denies poor appetite and Denies weight loss Eyes Reports requires corrective lenses ENT Reports Normal hearing present, Denies dental pain, Denies dysphagia, Denies hearing loss, Denies mouth pain, Denies odynophagia, Denies throat swelling, Denies tongue swelling and Reports other (Dentition adequate) GI Details: Denies abdominal pain, Denies melena, Denies bloating, Denies hematochezia, Denies constipation, Denies GI cramping, Denies dysphagia, Denies excessive flatus, Denies early satiety, Denies heartburn, Denies diarrhea, Denies nausea, Denies odynophagia, Denies vomiting and Denies hematemesis Skin/Breast Denies pruritus, Denies lesions, Denies rash and Denies jaundice Neuro Reports Normal hearing present and Denies Abnormal speech present Endo Denies fatigue Aller/Immun Denies throat swelling and Denies tongue swelling Physical Exam Vital Signs: Last Vital Signs Pulse 71 07/22/24 09:26 BP 141/83 H 07/22/24 09:26 BMI result Body Mass Index 35.8 Const General: cooperative, no acute distress, well developed and well groomed Nutritional Appearance: well nourished, obese and overweight Orientation/consciousness: oriented to person, oriented to place and oriented to time Limitations: No language barrier, ambulation with cane, ambulation with walker and wheelchair HEENT Head: Yes normocephalic and Yes atraumatic Eyes General: appearance normal, both eyes and all related structures Pupils: Equal, round and reactive pupils present Neck Neck: Yes normal visual inspection and Yes no lymphadenopathy Thyroid: Thyroid normal Resp Effort & Inspection: normal respiratory effort and able to speak in complete sentences Auscultation: clear to auscultation bilaterally Cardio Rate: regular rate Rhythm: regular rhythm Heart sounds: Normal, physiologic split S2 sound present Peripheral pulses: radial pulses present and posterior tibial pulses present GI Inspection: No distended and No Abdominal panniculus present Palpation (GI): Soft to palpation, nontender, no guarding, not rigid, No hepatosplenomegaly present and Hepatosplenomegaly present Percussion: Yes normal to percussion Auscultation: normal bowel sounds Rectal Exam - Male: Yes deferred Skin General skin exam: no rashes or lesions noted, turgor normal, skin not dry, no jaundice, No spider nevi and no striae Rashes: no rashes Nails: normal Neuro General: oriented to person, oriented to place and oriented to time Cranial nerves: Yes Equal, round and reactive pupils present and Yes Normal hearing present Speech: No Abnormal speech present Extrem General: Yes normal to inspection, No clubbing, No cyanosis and No edema Psych Thought process: Normal thought process present and not confabulating Thought content: Normal thought content present Insight: Good insight present (Psych) Judgement: Good judgement present (Psych) Assessment & Plan Assessment & Plan (1) Colon cancer screening: Code(s): Z12.11 - Encounter for screening for malignant neoplasm of colon Category: Medical Plan We should repeat the procedure in 7 years. He likes spicy foods and does not have any diarrhea, except a severe response to the prep! The procedure was well tolerated. The results were explained and the patient is agreeable to the follow-up interval as stated. The bowel pattern has returned to normal. Education was provided to tell any 1st degree relatives about their findings to be sure that they are screened by age 45. Educated that they will be put on a recall list when it is time for their repeat scope but should they move out of state or away from the hospital they will need to remember along with their primary to repeat the procedure in a timely fashion to avoid any adverse complications. Coding Level of Care Code Est Pt Level 3 (51144) Diagnoses Colon cancer screening Z12.11
== END 2024-07-22 10:11 | disposition home or self-care (01) ==
PROVIDERS: PCP Internal Medicine; Visit Provider Nurse Practitioner
DX: K64.0 First degree hemorrhoids (principal); K62.1 Rectal polyp; K52.9 Noninfective gastroenteritis and colitis, unspecified
CPT/HCPCS: 99213

== ENCOUNTER → 2024-07-22 09:17 | Outpatient (BNVA) | payer OTHER, SELFPAY | PROVIDERS: PCP Internal Medicine; Visit Provider Nurse Practitioner ==

== ENCOUNTER 2024-09-24 15:08 | Outpatient (AMB) | payer OTHER, SELFPAY ==
--- NOTE | 2024-09-24 15:09 | A.OFFPC_ITS ---
Vital Signs 09/24/24 15:10 Height 5 ft 6 in Weight 216 lb 4 oz BMI 34.9 Intake Visit Reasons: Eczema/follow up Intake Note: Patient is here to follow up on Eczema. Echocardiograph Tech Required: No Senior Clinical Data Analyst: Not Required per policy Accompanied by: Self / Same As Patient Allergies cat dander [cats] Allergy (Intermediate, Verified 09/24/24 15:45) sneezing/wheezing No Known Drug Allergies Allergy (Unknown, Verified 09/24/24 15:45) none Latex, Natural Rubber Allergy (Verified 09/24/24 15:45) Rash Medication List - Last Reconciled 09/24/24 by Eben Hanks MD cholecalciferol (vitamin D3) 50 mcg PO DAILY 90 days hydrocortisone 1% 1 appl topical .QD-BID PRN Tobacco use date assessed: 06/15/24 Dental Screening Dental Screen Date: 12/16/23 HPI Eczema/follow up HPI Details Patient's follow-up visit / consultation today is done over the phone - this is a Telehealth visit Patient's current medications have been reviewed and verified with patient and / or caregiver / proxy and have been updated accordingly in the medication list Patient states that he currently feels okay Still has the areas of dry and irritated patches of skin (on his finger and over the penile shaft) that he had before - states that he has the hydrocortisone cream that we prescribed for him last time but admits that he has not yet gotten around to using it as he has been very busy He denies any headaches or dizziness Denies any chest pains, no SOB No nausea/vomiting, no abdominal pain No change in bowel habits noted He had his colonoscopy done a couple of months ago on 07/08/24 - (+) hyperplastic polyp and is recommended to have colonoscopy repeated in 10 years [facility] Medical History Vitamin D deficiency Mixed hyperlipidemia Obesity (BMI 30-39.9) Asthma Surgical History (Updated 09/24/24 @ 16:09 by Eben Hanks MD) H/O colonoscopy History of surgery on arm Hx of inguinal hernia surgery Hx of eye surgery Family History Mother Diabetes Paternal Grandmother Hyperlipidemia Maternal Aunt Stomach cancer Family/Other Stomach cancer Social History Housing: House Alcohol intake: current Alcohol intake frequency: holidays/special occasions only Patient Tobacco Use Status: Former Tobacco user e-Cigarette/Vaping Use: Never Used Second Hand Smoke Exposure: Yes service: No Current occupational status: employed Current occupational exposures/hazards: No Cognitive needs: No Hearing needs: No Vision needs: No Questionnaire Thrive Questionnaire Date Thrive assessed: 12/16/23 AUDIT C Alcohol Use Questionnaire (AUDIT-C) 2. How many drinks containing alcohol do you have on a typical day when you are drinking?: 1 or 2 3. How often do you have six or more drinks on one occasion?: Never Total Score: 0 MARINO-7 AMB Questionnaire MARINO-7 Date MARINO - 7 assessed: 12/16/23 Source: Developed by Drs. Asael Calixto, Minnie Dewey, Brent Lawson and colleagues, with an educational ema from [employer]. Review of Systems Const Denies fatigue, Denies fever(s) and Denies headache(s) ENT Denies dysphagia, Denies dizziness, Denies otalgia, Denies headache(s), Denies neck pain, Denies odynophagia and Denies sore throat Card Denies chest pain, Denies palpitations and Denies dyspnea Resp Denies cough and Denies dyspnea GI Denies abdominal pain, Denies constipation, Denies dysphagia, Denies heartburn, Denies diarrhea, Denies nausea, Denies odynophagia and Denies vomiting Denies dysuria, Denies nocturia and Denies urinary frequency Musc Denies back pain and Denies neck pain Skin/Breast Details: (+) patch of dry, irritated skin on the dorsum of his right ring finger and also over the dorsum of the penile shaft Neuro Denies dizziness and Denies headache(s) Endo Denies fatigue and Denies palpitations Physical exam (Primary Care) Vital Signs: Physical examination is not performed as visit / consultation today is done over the phone - Telehealth visit All physical findings indicated here, if present, are as per patient's and / or caregivers / proxy's report BMI result Body Mass Index 34.9 Tobacco/Smoking Status: Tobacco use Status Tobacco use date assessed 06/15/24 09/24/24 15:11 Patient Tobacco Use Status Former Tobacco user 09/24/24 15:11 e-Cigarette/Vaping Use Never Used 09/24/24 15:11 Thrive Assessment: Date of Thrive Assessment Date Thrive assessed 12/16/23 09/24/24 15:11 Telehealth Telehealth Telehealth Platform: Telephone Location of provider rendering services: practice address Location of patient: address on file Patient Identification confirmed using: Name, : Yes Telehealth method: voice only Patient verbally consented to treatment: Yes Patient verbally consented to billing insurance company: Yes Patient informed of any privacy concerns related to visit: Yes Minutes spent on Phone/Video with Pt.: 18 Coding Level of Care Code Tele Est Pt Level 3 (19787) Diagnoses Mild intermittent asthma without complication J45.20 Asthma severity: mild Asthma persistence: intermittent Asthma complication type: uncomplicated Mixed hyperlipidemia E78.2 Vitamin D deficiency E55.9 Dermatitis L30.9 Obesity (BMI 30-39.9) E66.9 Assessment & Plan Assessment & Plan (1) Asthma: Code(s): J45.909 - Unspecified asthma, uncomplicated Category: Medical Qualifiers: Asthma severity: mild Asthma persistence: intermittent Asthma complication type: uncomplicated Qualified Code(s): J45.20 - Mild intermittent asthma, uncomplicated Plan: Stable Continue Albuterol HFA 1 to 2 inhalations Q 6 hours PRN (2) Mixed hyperlipidemia: Code(s): E78.2 - Mixed hyperlipidemia Category: Medical Plan: Reinforced low cholesterol diet; he is also advised again that exercising and losing weight can help address his cholesterol levels We will have him recheck his labs and fasting lipids in a couple of months for follow up - he is reminded to get these done just BEFORE he comes in for his appointment ([facility]) in December 2024 (3) Vitamin D deficiency: Code(s): E55.9 - Vitamin D deficiency, unspecified Category: Medical Plan: Continue Vitamin D3 2000 units QD (4) Dermatitis: Code(s): L30.9 - Dermatitis, unspecified Category: Medical Plan: Will have him start using the Hydrocortisone 1% topical cream that he has at home and apply it on the aforementioned rash TID PRN (5) Obesity (BMI 30-39.9): Code(s): E66.9 - Obesity, unspecified Category: Medical Plan: Reinforced diet/exercise as tolerated/lose weight Plan To return as scheduled in December 2024 for his annual physical exam
[2024-09-24 15:10] VITALS: BMI 34.9
== END 2024-09-24 16:10 | disposition home or self-care (01) ==
LOC: HO.HMCH 15:08
PROVIDERS: PCP Internal Medicine; Visit Provider Internal Medicine
DX: J45.20 Mild intermittent asthma, uncomplicated (principal); E78.2 Mixed hyperlipidemia; E66.9 Obesity, unspecified; Z68.34 Body mass index [BMI] 34.0-34.9, adult; E55.9 Vitamin D deficiency, unspecified; L30.9 Dermatitis, unspecified

== ENCOUNTER → 2024-09-24 15:08 | Outpatient (BNVA) | payer OTHER, SELFPAY | PROVIDERS: PCP Internal Medicine; Visit Provider Internal Medicine ==

== ENCOUNTER 2024-12-17 08:55 | Outpatient (AMB) | payer OTHER, SELFPAY ==
[2024-12-17 09:07] VITALS: BP 112/78; PULSE 65; O2SAT 96; BMI 33.6
--- NOTE | 2024-12-17 09:07 | MHC.PC.OV ---
Vital Signs 12/17/24 09:07 Height 5 ft 6 in Weight 208 lb BMI 33.6 BP 112/78 Blood Pressure Location Lt brachial Position Sitting Pulse 65 Pulse Source Pulse Oximeter Pulse Oximetry (%) 96 Oxygen Delivery Method Room Air Intake Visit Reasons: annual exam Intake Note: Patient find that he is wheezing at night and is requesting a PRN inhaler. Allergies cat dander [cats] Allergy (Intermediate, Verified 12/17/24 09:45) sneezing/wheezing No Known Drug Allergies Allergy (Unknown, Verified 12/17/24 09:45) none Latex, Natural Rubber Allergy (Verified 12/17/24 09:45) Rash Medication List - Last Reconciled 12/17/24 by Eben Hanks MD cholecalciferol (vitamin D3) 50 mcg PO DAILY 90 days hydrocortisone 1% 1 appl topical .QD-BID PRN Tobacco use date assessed: 12/17/24 Dental Screening Dental Screen Date: 12/17/24 Did you have a dental visit in the last 12 months?: Yes Did you have a dental problem in the last 6 months where you did not have access to dental care?: No Was dental information given to patient?: Patient has dentist HPI annual exam HPI Details Patient comes in today for his annual physical examination States that he has been experiencing some mild SOB and wheezing occasionally at night lately and would like to get a refill on his Albuterol inhaler States that he feels okay otherwise He denies any headaches or dizziness Denies any chest pains No nausea/vomiting, no abdominal pain No change in bowel habits noted He denies any acute urinary symptoms He had his screening colonoscopy done back on 07/08/2024 - (+) hyperplastic polyps and he will need repeat colonoscopy in 10 years [facility] Medical History Vitamin D deficiency Mixed hyperlipidemia Obesity (BMI 30-39.9) Asthma Surgical History H/O colonoscopy History of surgery on arm Hx of inguinal hernia surgery Hx of eye surgery Family History Mother Diabetes Paternal Grandmother Hyperlipidemia Maternal Aunt Stomach cancer Family/Other Stomach cancer Social History Housing: House Alcohol intake: current Alcohol intake frequency: holidays/special occasions only Patient Tobacco Use Status: Former Tobacco user Tobacco use type: Cigarette e-Cigarette/Vaping Use: Never Used Second Hand Smoke Exposure: Yes service: No Current occupational status: employed Current occupational exposures/hazards: No Cognitive needs: No Hearing needs: No Vision needs: No Questionnaire PHQ-9 Over the last 2 weeks, how often have you been bothered by any of the following problems? 1. Little interest or pleasure in doing things: not at all 2. Feeling down, depressed, or hopeless: not at all 3. Trouble falling or staying asleep, or sleeping too much: not at all 4. Feeling tired or having little energy: not at all 5. Poor appetite or overeating: not at all 6. Feeling bad about yourself - or that you are a failure or have let yourself or your family down: not at all 7. Trouble concentrating on things, such as reading the newspaper or watching television: not at all 8. Moving or speaking so slowly that other people could have noticed. Or the opposite - being so fidgety or restless that you have been moving around a lot more than usual: not at all 9. Thoughts that you would be better off or of hurting yourself in some way: not at all Total score: 0 Depression Screening Interpretation: Negative Depression Screening Done: Yes 26896 - PHQ-9 Billing: Yes Source: Developed by Drs. Asael Calixto, Minnie Dewey, Brent Lawson and colleagues, with an educational ema from [employer]. Thrive Questionnaire Date Thrive assessed: 12/17/24 I am a: Patient What is your living situation today?: I have a steady place to live Within the past 12 months, did the food you bought not last and you didn't have the money to get more?: Never true Within the past 12 months, did you worry whether your food would run out before you got money to buy more?: Never true Do you have trouble paying for medicines?: No Do you have trouble getting transportation to medical appointments?: No Do you have trouble paying your heating and electricity bill?: No Do you have trouble taking care of your child, family member or friend?: No Do you have trouble with day-to-day activities such as bathing, preparing meals, shopping, managing finances, etc.?: No Are you currently unemployed and looking for a job?: No Are you interested in more education?: I choose not to answer this question Please select the resources that you would like help with: None Currently or been in a relationship where the following occur: No concerns reported THRIVE Score: 0 AUDIT C Alcohol Use Questionnaire (AUDIT-C) 1. How often do you have a drink containing alcohol?: Monthly or less 2. How many drinks containing alcohol do you have on a typical day when you are drinking?: 1 or 2 3. How often do you have six or more drinks on one occasion?: Monthly Total Score: 3 Score Reviewed/Action Taken: Yes MARINO-7 AMB Questionnaire MARINO-7 Date MARINO - 7 assessed: 12/17/24 Feeling nervous, anxious, or on edge: 0 = Not at all Not being able to stop or control worryin = Not at all Worrying too much about different things: 0 = Not at all Trouble relaxin = Not at all Being so restless that it is hard to sit still: 0 = Not at all Becoming easily annoyed or irritable: 2 = More than half the days Feeling afraid as if something awful might happen: 0 = Not at all Total MARINO-7 score (0-4 normal; 5-9 mild; 10-14 moderate; 15-21 severe): 2 Source: Developed by Drs. Asael Calixto, Minnie Dewey, Brent Lawson and colleagues, with an educational ema from [employer]. Review of Systems Const Denies chills, Denies fatigue, Denies fever(s), Denies headache(s), Denies malaise and Denies weakness Eyes Denies blurry vision, Denies change in vision, Denies irritation and Denies itchy eyes ENT Denies dysphagia, Denies dizziness, Denies otalgia, Denies headache(s), Denies nasal congestion, Denies neck pain, Denies odynophagia and Denies sore throat Card Denies chest pain, Denies rapid heart rate, Denies irregular heart rhythm, Denies palpitations and Denies dyspnea Resp Denies chest congestion (but chest feels tight at times at night recently), Denies cough, Denies dyspnea and Reports wheezing (at times lately, especially at night) GI Denies abdominal pain, Denies bloating, Denies constipation, Denies dysphagia, Denies heartburn, Denies diarrhea, Denies nausea, Denies odynophagia and Denies vomiting Denies hematuria, Denies difficulty urinating, Denies dysuria, Denies urinary frequency and Denies urinary urgency Musc Denies back pain, Denies arthralgias, Denies joint swelling, Denies muscle weakness and Denies neck pain Skin/Breast Denies change in pigmentation, Denies lesions, Denies rash and Denies unusual bruising Neuro Denies dizziness, Denies headache(s), Denies paresthesias and Denies weakness Endo Denies fatigue and Denies palpitations Aller/Immun Denies itchy eyes and Reports wheezing (at times lately, especially at night) Physical exam (Primary Care) Vital Signs: Last Vital Signs Pulse 65 12/17/24 09:07 BP 112/78 12/17/24 09:07 Pulse Ox 96 12/17/24 09:07 Oxygen Delivery Method Room Air 12/17/24 09:07 BMI result Body Mass Index 33.6 Tobacco/Smoking Status: Tobacco use Status Tobacco use date assessed 12/17/24 12/17/24 09:11 Patient Tobacco Use Status Former Tobacco user 12/17/24 09:11 Tobacco use type Cigarette 12/17/24 09:11 e-Cigarette/Vaping Use Never Used 12/17/24 09:11 PHQ-9: PHQ-9 Score PHQ-9: Total score 0 12/17/24 09:57 Depression Screening Interpretation: Negative Thrive Assessment: Date of Thrive Assessment Date Thrive assessed 12/17/24 12/17/24 09:11 Currently or been in a relationship where the following occur: No concerns reported Const General: no acute distress, alert and awake Orientation/consciousness: patient oriented x3 HENMT Head: Yes normocephalic and Yes atraumatic Ears: external ears normal, TM's normal bilaterally and EAC's normal General nose exam: No nasal discharge present Face and sinus: Yes normal facial exam and Yes sinuses nontender Teeth and gingiva: dentition normal Throat: Yes posterior oropharynx normal and Yes tonsils normal (no TP congestion) Eyes Eyelids: Yes eyelids normal Conjunctivae: conjunctivae normal Pupils: Equal, round and reactive pupils present EOM: EOMs intact bilaterally Neck Neck: Yes no lymphadenopathy and Yes supple Thyroid: Thyroid normal Resp Auscultation: no crackles, no rales, no wheezes and diminished lung sounds (slightly) bilateral Cardio Rate: regular rate Rhythm: regular rhythm Heart sounds: no murmurs GI Palpation (GI): Soft to palpation, nontender and No hepatosplenomegaly present Auscultation: normal bowel sounds General: Yes no CVA tenderness Back/Spine/Pelvis Back: no CVA tenderness Thoracic/Lumbar Spine: thoracic and lumbar spine normal to inspection Skin Lesions: no lesions Rashes: no rashes Neuro General: patient oriented x3, moves all extremities, no focal motor deficits and CN's II-XI intact bilaterally Cranial nerves: Yes Equal, round and reactive pupils present Cognition (Neuro): normal cognition Gait exam (Neuro): Normal gait present Extrem General: Yes no clubbing, cyanosis or edema Coding Level of Care Code Est Pt Prev Care 40-64y(45448) Diagnoses Annual physical exam Z00.00 Mild intermittent asthma without complication J45.20 Asthma severity: mild Asthma persistence: intermittent Asthma complication type: uncomplicated Mixed hyperlipidemia E78.2 Vitamin D deficiency E55.9 Obesity (BMI 30-39.9) E66.9 Additional Codes PHQ-9 - 75326 - PHQ-9 Billing: Yes ([id number]) Assessment & Plan Assessment & Plan (1) Annual physical exam: Code(s): Z00.00 - Encounter for general adult medical examination without abnormal findings Category: Medical Plan: Check labs - he is instructed to just use the lab orders that were previously placed and can get them done as soon as he is done with his office visit today He also just had his screening colonoscopy done back in July 2024 - (+) hyperplastic polyps and he is recommended to have his next colonoscopy in 10 years (2) Asthma: Code(s): J45.909 - Unspecified asthma, uncomplicated Category: Medical Qualifiers: Asthma severity: mild Asthma persistence: intermittent Asthma complication type: uncomplicated Qualified Code(s): J45.20 - Mild intermittent asthma, uncomplicated Plan: Continue Albuterol HFA 1 to 2 inhalations Q 6 hours PRN - Rx refilled As he appears to be experiencing recurrent flare ups of his asthma recently, will send him for chest x-rays for further evaluation and start him on Breo Ellipta 100-25 mcg 1 inhalation QD (3) Mixed hyperlipidemia: Code(s): E78.2 - Mixed hyperlipidemia Category: Medical Plan: Reinforced low cholesterol diet Will have him recheck his labs and fasting lipids FERNANDO for follow up (4) Vitamin D deficiency: Code(s): E55.9 - Vitamin D deficiency, unspecified Category: Medical Plan: Continue Vitamin D3 2000 units QD Will recheck his Vitamin D level for follow up (5) Obesity (BMI 30-39.9): Code(s): E66.9 - Obesity, unspecified Category: Medical Plan: Reinforced diet/exercise as tolerated/lose weight Orders: Orders XR chest 2V 12/17/24 J98.8 - Other specified respiratory disorders Medications: New Breo Ellipta 100-25 mcg/dose (fluticasone furoate-vilanterol) 1 inh inhalation DAILY 30 days 30 ea 0RF NS Refilled albuterol sulfate 90 mcg/actuation (Ventolin HFA) 2 puffs inhalation Q6H 30 days PRN 8.5 grams 5RF shortness of breath or wheezing
== END 2024-12-17 09:59 | disposition home or self-care (01) ==
PROVIDERS: PCP Internal Medicine; Visit Provider Internal Medicine
DX: Z00.00 Encounter for general adult medical examination without abnormal findings (principal); J45.20 Mild intermittent asthma, uncomplicated; E66.9 Obesity, unspecified; Z68.33 Body mass index [BMI] 33.0-33.9, adult; E78.2 Mixed hyperlipidemia; E55.9 Vitamin D deficiency, unspecified

== ENCOUNTER → 2024-12-17 08:55 | Outpatient (BNVA) | payer OTHER, SELFPAY | PROVIDERS: PCP Internal Medicine; Visit Provider Internal Medicine | DX: Z00.00 Encounter for general adult medical examination without abnormal findings (principal); J45.20 Mild intermittent asthma, uncomplicated; E78.2 Mixed hyperlipidemia; E55.9 Vitamin D deficiency, unspecified; E66.9 Obesity, unspecified; Z68.33 Body mass index [BMI] 33.0-33.9, adult; Z79.899 Other long term (current) drug therapy | CPT/HCPCS: 96127 ==

== ENCOUNTER 2024-12-17 10:08 | Outpatient (REF) | payer OTHER, SELFPAY ==
--- NOTE | ~2024-12-17 | XR_ITS ---
EXAMINATION: XR CHEST 2 VIEWS HISTORY: J98.8 - Other specified respiratory disorders COMPARISON: There are no prior studies for comparison. FINDINGS: PA and lateral views of the chest are submitted. The lungs are expanded and clear. There is no pleural effusion, pneumothorax, or pulmonary vascular congestion. The heart is normal in size. The bones are intact. XR/XR chest 2V IMPRESSION: Normal examination of the chest. Electronically signed by: Asael Ji MD 12/20/2024 03:01 PM [facility]
[2024-12-17 11:49] LABS: Basophils Absolute Auto 0.1 X10*3/uL (0.0-0.2); Basophils Percent Auto 2.1 % (0-2); Eosinophils Absolute Auto 0.4 X10*3/uL (0.0-0.4); Eosinophils Percent Auto 8.5 % (0-4); Hematocrit 45.5 % (42.0-52.0); Hemoglobin 15.5 g/dl (14.0-18.0); Imm Gran Abs Auto 0.01 X10*3/uL (0.00-0.03); Imm Gran Pct Auto 0.2 % (0.0-0.4); Lymphocytes Absolute Auto 2.2 X10*3/uL (1.2-4.9); Lymphocytes Percent Auto 51.2 % (20-40); MANUAL DIFF FLAG NO; Mean Corpuscular HGB Conc 34.1 g/dl (31.0-36.0); Mean Corpuscular Hemoglobin 28.8 pg (27.0-33.0); Mean Corpuscular Volume 84.6 fL (80.0-98.0); Mean Platelet Volume 10.4 fL (9.4-12.4); Monocytes Absolute Auto 0.4 X10*3/uL (0.1-1.2); Monocytes Percent Auto 9.7 % (2-11); Neutrophils Absolute Auto 1.2 x10*3/uL (2.0-8.3); Neutrophils Percent Auto 28.3 % (45-73); Platelet Count 256 X10*3/uL (160-400); Red Blood Count 5.38 X10*6/uL (4.60-5.80); Red Cell Distribution Width 12.7 % (11.0-16.0); White Blood Count 4.2 X10*3/uL (4.8-10.8)
[2024-12-17 11:52] LABS: Appearance Urine Clear; Color Urine Yellow; Glucose Urine UA Negative (Negative); Leukocyte Esterase Urine Negative (Negative); Nitrite Urine Negative (Negative); Urine Blood Negative (Negative); Urine Ketones Negative (Negative); Urine Protein Negative (Neg-Trace)
[2024-12-17 12:34] LABS: Alanine Aminotransferase 25 U/L (0-40); Albumin Level 4.6 g/dL (3.5-5.0); Alkaline Phosphatase 63 U/L (39-117); Anion Gap 10 (12-20); Aspartate Amino Transferase 21 U/L (5-37); Bilirubin Total 0.4 mg/dL (0.0-1.0); Blood Urea Nitrogen 13 mg/dL (9-16); Calcium 9.7 mg/dL (8.4-10.2); Carbon Dioxide 28 mmol/L (22-29); Chloride 107 mmol/L (96-108); Cholesterol 142 mg/dL (<200); Estimated Glomerular Filt Rate > 60; Glucose Fasting 88 mg/dL (60-99); HDL Cholesterol 36 mg/dL (>40); LDL Cholesterol Calculated 86 mg/dL (<100); Potassium 4.5 mmol/L (3.3-5.1); Sodium 140 mmol/L (135-145); Triglycerides 102 mg/dL (<150)
[2024-12-17 12:43] LABS: TSH reflex Free T4 1.77 uIU/mL (0.32-4.0); Vitamin D 25-OH Total 23.9 ng/mL (>30)
== END 2024-12-17 10:09 | disposition home or self-care (01) ==
LOC: HO.XRAY 10:08
PROVIDERS: PCP Internal Medicine; Visit Provider Internal Medicine
DX: Z00.00 Encounter for general adult medical examination without abnormal findings (principal); J98.8 Other specified respiratory disorders; D64.9 Anemia, unspecified; R30.0 Dysuria; E55.9 Vitamin D deficiency, unspecified; E78.00 Pure hypercholesterolemia, unspecified
CPT/HCPCS: 36415; 71046; 80053; 80061; 81003; 82306; 84443; 85025

== ENCOUNTER → 2024-12-17 11:04 | Outpatient (BNV) | payer OTHER, SELFPAY | PROVIDERS: PCP Internal Medicine; Visit Provider Radiology Diagnostic Radiology | DX: J98.8 Other specified respiratory disorders (principal) | CPT/HCPCS: 71046 ==